=== PATIENT | female | born 1965 | race Caucasian/White ===

== ENCOUNTER 2017-08-15 11:07 | Emergency (ER) | payer OTHER ==
[~2017-08-15] VITALS: Ht 175.3 cm; Wt 79.4 kg
[2017-08-15] MEDS ORDERED: IBUPROFEN200 MG PO (11:31)
[2017-08-15] MEDS ORDERED: ACET325 PO (11:31)
[2017-08-15] MEDS ORDERED: NAPR550 PO (12:54)
== END 2017-08-15 12:59 | disposition home or self-care (01) ==
LOC: ER 11:07
DX: S83.92XA Sprain of unspecified site of left knee, initial encounter (principal); F17.210 Nicotine dependence, cigarettes, uncomplicated; W18.30XA Fall on same level, unspecified, initial encounter
CPT/HCPCS: 73564; 99283-25

== ENCOUNTER 2021-12-19 19:43 | Emergency (ER) | payer OTHER ==
[~2021-12-19] VITALS: Ht 170.2 cm; Wt 79.4 kg
[~2021-12-19 19:43] MED LIST: ACET325 PO; IBUPROFEN200 MG PO; NAPR550 PO
[2021-12-19 20:00] LABS: Calcium, Ionized (POC) 0.79 mmol/L (1.10-1.46); Chloride (POC) 110 mmol/L (98-108); Creatinine (POC) 1.2 mg/dL (0.6-1.0); Glucose (ISTAT POC) 79 mg/dL (70-99); Hemoglobin (POC) 6.8 g/dL (12.0-16.0); Potassium (POC) 5.6 mmol/L (3.5-5.5); Sodium (POC) 145 mmol/L (135-148); Total CO2 (POC) 23 mmol/L (21-32)
== END 2021-12-19 22:33 ==
LOC: ER 19:43
DX: I46.9 Cardiac arrest, cause unspecified (principal); J96.90 Respiratory failure, unspecified, unspecified whether with hypoxia or hypercapnia; Z87.09 Personal history of other diseases of the respiratory system; F17.210 Nicotine dependence, cigarettes, uncomplicated; Z59.00 Homelessness unspecified; Z79.899 Other long term (current) drug therapy
CPT/HCPCS: 80047; 85014